=== PATIENT | male | born 1985 | race Caucasian/White ===

== ENCOUNTER 2021-04-29 01:21 | Emergency (ER) | payer MEDICAID ==
[~2021-04-29] VITALS: Ht 182.9 cm; Wt 100.0 kg
[2021-04-29] MEDS ORDERED: FLUV100T3 PO (01:27)
[2021-04-29] MEDS ORDERED: DIVA-52 (01:28)
[2021-04-29] MEDS ORDERED: OLAN5TAB5 PO (01:29)
[2021-04-29] MEDS ORDERED: CLON-527 PO (01:30)
[2021-04-29] MEDS ORDERED: LORazepam 1 MG tablet PO ONE (05:05)
[2021-04-29 05:38] VITALS: BP 127/90
== END 2021-04-29 07:08 | disposition home or self-care (01) ==
LOC: ER 01:22
DX: S60.412A Abrasion of right middle finger, initial encounter (principal); F41.9 Anxiety disorder, unspecified; F20.9 Schizophrenia, unspecified; Z79.899 Other long term (current) drug therapy; X58.XXXA Exposure to other specified factors, initial encounter; Y93.89 Activity, other specified; Y92.89 Other specified places as the place of occurrence of the external cause; Y99.8 Other external cause status
CPT/HCPCS: 99283